=== PATIENT | female | born 1960 | race Caucasian/White ===

== ENCOUNTER 2016-08-13 18:35 | Observation (INO) | payer OTHER ==
--- NOTE | 2016-08-13 19:37 | PDOC ---
History of Present Illness - General History Source: Patient Exam Limitations: No Limitations - History of Present Illness Initial Comments: 08/13/16 19:37 The patient is a 55 year old female with history of hypertension, hyperlipidemia (not on medications), DM, thyroid disease obesity, OA, who presents to the ED complaining of approximately 2 hours of shortness of breath. She states she set off a gomez bomb in her house this morning. This afternoon she was cooking at approximately 5:30 PM when she became short of breath with associated nonproductive cough, lightheadedness, and sore throat. The patient also complains of several months of intermittent chest discomfort with numbness radiating down her left arm unilaterally. She also complains of right lower extremity swelling of the ankle for 2 days, no calf pain. States she felt a bug and scratched it prior to the onset of her right ankle swelling. No true chest pain. No fever or chills. No nausea, vomiting, or diarrhea. PCP: Dr. Lewis [employer] Rep[employer] Supervisor: None SH: Denies smoking or drinking FH: Sister of cardiac arrest in her 40s Sisters with Breast CA, father with "throat" cancer <Ericka Obando - Last Filed: 08/14/16 00:05> <Anay Marcum - Last Filed: 08/14/16 05:23> - General Chief Complaint: Shortness of Breath Stated Complaint: DIFFICULTY BREATHING Time Seen by Provider: 08/13/16 19:14 Past History <Ericka Obando - Last Filed: 08/14/16 00:05> - Past Medical History Diabetes: Yes Thyroid Disease: Yes - Psycho/Social/Smoking Cessation Hx Anxiety: No Suicidal Ideation: No Smoking History: Former smoker Have you smoked in the past 12 months: No Information on smoking cessation initiated: No Hx Alcohol Use: No Drug/Substance Use Hx: No Substance Use Type: None <Anay Marcum - Last Filed: 08/14/16 05:23> - Past Medical History Allergies/Adverse Reactions: Allergies Allergy/AdvReac Type Severity Reaction Status Date / Time Penicillins Allergy Verified 08/13/16 18:36 Home Medications: Ambulatory Orders Gabapentin 300 mg PO DAILY 08/13/16 Levothyroxine [Synthroid -] 300 mcg PO DAILY 08/13/16 Metformin HCl 1,000 mg PO BID 08/13/16 Naproxen Sodium [Aleve] 220 mg PO DAILY 08/13/16 Review of Systems - Review of Systems Able to Perform ROS?: Yes Comments:: 08/13/16 19:41 GENERAL/CONSTITUTIONAL: No fever or chills. No weakness. HEAD, EYES, EARS, NOSE AND THROAT: +sore throat. +nasal congestion. No change in vision. No ear pain or discharge. CARDIOVASCULAR: +lightheadedness. +Right lower edema. +Chest discomfort with LUE numbness x several months. No true chest pain. RESPIRATORY: +SOB. +Nonproductive cough. No hemoptysis. GASTROINTESTINAL: No nausea, vomiting, diarrhea or constipation. GENITOURINARY: No dysuria, frequency, or change in urination. MUSCULOSKELETAL: No joint or muscle swelling or pain. No neck or back pain. SKIN: No rash NEUROLOGIC: No headache, loss of consciousness. +LUE numbnessx several months. ENDOCRINE: No increased thirst. No abnormal weight change. HEMATOLOGIC/LYMPHATIC: No anemia, easy bleeding, or history of blood clots. ALLERGIC/IMMUNOLOGIC: No hives or skin allergy. <Ericka Obando - Last Filed: 08/14/16 00:05> *Physical Exam - Vital Signs Last Vital Signs Temp Pulse Resp BP Pulse Ox 98.0 F 80 18 114/71 96 08/13/16 18:51 08/13/16 18:51 08/13/16 18:51 08/13/16 18:51 08/13/16 18:51 - Physical Exam Comments: 08/13/16 20:02 GENERAL: Awake, alert, and fully oriented, in no acute distress HEAD: No signs of trauma EYES: PERRLA, EOMI, sclera anicteric, conjunctiva clear ENT: Auricles normal inspection, hearing grossly normal, nares patent, oropharynx clear without exudates. Moist mucosa NECK: Normal ROM, supple, no lymphadenopathy, JVD, or masses LUNGS: Breath sounds equal, clear to auscultation bilaterally. No wheezes, and no crackles HEART: Regular rate and rhythm, normal S1 and S2, no murmurs, rubs or gallops ABDOMEN: Soft, nontender, normoactive bowel sounds. No guarding, no rebound. No masses EXTREMITIES: +RLE edema of the ankle. No calf tenderness, negative Bessy's. Normal range of motion. No clubbing or cyanosis. No cords, erythema, or tenderness NEUROLOGICAL: Cranial nerves II through XII grossly intact. Normal speech, normal gait SKIN: Warm, Dry, normal turgor, no rashes or lesions noted. <Ericka Obando - Last Filed: 08/14/16 00:05> - Vital Signs Last Vital Signs Temp Pulse Resp BP Pulse Ox 98.0 F 80 18 114/71 96 08/13/16 18:51 08/13/16 18:51 08/13/16 18:51 08/13/16 18:51 08/13/16 18:51 <Anay Marcum - Last Filed: 08/14/16 05:23> Heart Score/ECG Review #1 08/13/16 21:13 EKG obtained 18:50. NSR at [address] segment changes in V2 and V3. Abnormal EKG #2 08/13/16 21:13 EKG obtained 21:02. Normal sinus rhythm [address] segment changes unchanged from previous. <Ericka Obando - Last Filed: 08/14/16 00:05> - History History: Slightly suspicious - Electrocardiogram EKG: Non specific repolarization disturbance - Age Age: 45-65 - Risk Factors Risk Factors Heart Score: Yes Hx Hypercholesterolemia, Yes Hx Diabetes, Yes Positive family hx of cardiac disease, Yes Hx Obesity Based on the list above the patient has:: >/=3 risk factors or Hx atherosclerotic disease - Troponin Troponin: </= normal limit (obs) - Score Heart Score - Total: 4 <Anay Marcum - Last Filed: 08/14/16 05:23> ED Treatment Course - LABORATORY CBC & Chemistry Diagram: 08/13/16 20:36 08/13/16 20:36 <Ericka Obando - Last Filed: 08/14/16 00:05> - LABORATORY CBC & Chemistry Diagram: 08/13/16 20:36 08/13/16 20:36 <Anay Marcum - Last Filed: 08/14/16 05:23> Medical Decision Making - Medical Decision Making 08/14/16 05:19 Pt comes with SOB and CP. SHe has high cholesterol and fam hx of CAD and she is morbidly obese. She states that for the last few weeks she has been experiencing left sided arm pain and chest pain. 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 SHe has wheezing, but she has no hx of asthma. She states that she used a gomez killer throughout her home today, which may be contributing to the SOB, however, she will be admitted for cardiology workup, as the angina like chest pain in the past several weeks followed by todays [facility] , and her EKG which demonstrates anterior ST T changes behoove us to follow her cardiac enzymes. Pt will be admitted to telemetry observation. <Anay Marcum - Last Filed: 08/14/16 05:23> *DC/Admit/Observation/Transfer - Attestations Scribe Attestion: 08/13/16 20:04 Documentation prepared by Ericka Obando, acting as medical transcription radiology for Anay Marcum MD. <Ericka Obando - Last Filed: 08/14/16 00:05> - Discharge Dispostion Admit: Yes <Anay Marcum - Last Filed: 08/14/16 05:23> Diagnosis at time of Disposition: Chest pain, Dyspnea
[2016-08-13 20:41] LABS: MCH 31.3 pg (25.7-33.7); MCHC 33.3 g/dl (32.0-36.0); MEAN CELL VOLUME 93.8 fl (80-96); MEAN PLT VOLUME 10.4 fl (7.5-11.1); PLATELET COUNT 166 K/MM3 (134-434); RDW 12.9 % (11.6-15.6); WHITE BLOOD COUNT 7.6 K/mm3 (4.0-10.0)
[2016-08-13 21:06] LABS: INR 1.03 (0.82-1.09); PROTHROMBIN TIME (PATIENT) 11.3 SEC (9.98-11.88)
[2016-08-13] MEDS ORDERED: ASPIRIN 81 MG CHEWABLE TABLETS PO ONE (21:12)
[2016-08-13] MEDS ORDERED: predniSONE 20 MG TABLET (UD) PO ONE (21:12)
[2016-08-13] MEDS ORDERED: ALBUTEROL SO4 2.5/IPRATROPIUM 0.5 INH SOL 3 ML VIAL.NEB. NEB ONE ×2 (21:12→21:16)
[2016-08-13 21:16] LABS: ALBUMIN 3.9 g/dl (3.4-5.0); ANION GAP 8 (8-16); BILIRUBIN,TOTAL 0.3 mg/dL (0.2-1.0); CALCIUM 9.9 mg/dL (8.5-10.1); CO2 30 mmol/L (21-32); GLUCOSE,RANDOM 290 mg/dL (74-106); SGOT/AST 70 U/L (15-37); SGPT/ALT 106 U/L (12-78); TOT PROT 7.7 g/dl (6.4-8.2)
[2016-08-13] MEDS ORDERED: predniSONE 20 MG TABLET (UD) ONE (21:16)
[2016-08-13] MEDS ORDERED: ASPIRIN 81 MG CHEWABLE TABLETS ONE (21:16)
[2016-08-13 21:18] LABS: ALK PHOS 70 U/L (45-117); TROPONIN I < 0.02 ng/ml (0.00-0.05)
[2016-08-13 21:20] LABS: METAMYELOCYTE 1 % (0-2); PLATELET ESTIMATE ADEQUATE (NORMAL)
--- NOTE | 2016-08-13 22:43 | PN ---
Teaching Attending Note Name of Resident: Veronica Goff ATTENDING PHYSICIAN STATEMENT I saw and evaluated the patient. I reviewed the resident's note and discussed the case with the resident. I agree with the resident's findings and plan as documented. SUBJECTIVE: 55 F with pmhc htn. hld, DM, thyriod disorder who presented with shortness of breath and chest pain. Chest pain is intermittent in nature and has been going on several weeks in duration. No chest pressure. Chest pain radiates down the left hand. States during the "gomez bomb" she has shortness of breath. Also notes immobility anf LLE swelling X 1 day in duration. OBJECTIVE: Physical: VS: Vital Signs Period Temp Pulse Resp BP Sys/Cooley Pulse Ox Last 24 Hr 97.8 F-98.0 F 80-82 18-20 113-114/71-93 96-99 02 % 89-90% upon our arrival to ED GEN: NAD, Able to speak full sentences, resting in bed HEENT: NCAT, PERRL CARD: RRR S1, S2 RESP: Bilateral mild expiratory wheeze ABD: BS X4, NTD to palpation EXT: R foot non-pitting edema, with calf tenderness, RLE mild edema > LLE CBCD WBC 7.6 K/mm3 (4.0-10.0) 08/13/16 20:36 RBC 4.81 M/mm3 (3.60-5.2) 08/13/16 20:36 Hgb 15.0 GM/dL (10.7-15.3) 08/13/16 20:36 Hct 45.1 % (32.4-45.2) 08/13/16 20:36 MCV 93.8 fl (80-96) 08/13/16 20:36 MCHC 33.3 g/dl (32.0-36.0) 08/13/16 20:36 RDW 12.9 % (11.6-15.6) 08/13/16 20:36 Plt Count 166 K/MM3 (134-434) 08/13/16 20:36 MPV 10.4 fl (7.5-11.1) 08/13/16 20:36 CMP Sodium 137 mmol/L (136-145) 08/13/16 20:36 Potassium 5.1 mmol/L (3.5-5.1) 08/13/16 20:36 Chloride 99 mmol/L (98-107) 08/13/16 20:36 Carbon Dioxide 30 mmol/L (21-32) 08/13/16 20:36 Anion Gap 8 (8-16) 08/13/16 20:36 BUN 19 mg/dL (7-18) H 08/13/16 20:36 Creatinine 1.0 mg/dL (0.55-1.02) 08/13/16 20:36 Creat Clearance w eGFR 57.78 (>60) 08/13/16 20:36 Random Glucose 290 mg/dL (74-106) H 08/13/16 20:36 Calcium 9.9 mg/dL (8.5-10.1) 08/13/16 20:36 Total Bilirubin 0.3 mg/dL (0.2-1.0) 08/13/16 20:36 AST 70 U/L (15-37) H 08/13/16 20:36 ALT 106 U/L (12-78) H 08/13/16 20:36 Alkaline Phosphatase 70 U/L (45-117) 08/13/16 20:36 Total Protein 7.7 g/dl (6.4-8.2) 08/13/16 20:36 Albumin 3.9 g/dl (3.4-5.0) 08/13/16 20:36 CARDIAC ENZYMES Creatine Kinase 105 IU/L (26-192) 08/13/16 20:36 Troponin I < 0.02 ng/ml (0.00-0.05) 08/13/16 20:36 ASSESSMENT AND PLAN: 55 f with htn, hld, dm, thyriod disorder who presents with shortness of breath and chest pain 1.) Shortness of Breath- Hypoxemia - ABG - WELLS SCORE 3 - CTA ro PE - Alb neb prn sob - Prednisone given in ED - 2L NC 2.) Chest pain- Atypical - HEart 3 - Trend Ekg/Trop - ASA - 02 2 L NC - Nitro/Morphine prn chest pain 3.) HTN - C/w Home meds 4.) HLD - Cont home meds 5.) DM - FS - RAISS 6.) RLE Edema - Stat Duplex 7.) Transaminitis - Hepatitis Panel - Trend, can be followed outpt. 7.) Dvt ppx - Eval for DVT w. Duplex Place in [facility]
--- NOTE | 2016-08-14 00:10 | HP ---
CHIEF COMPLAINT: Shortness of breath and chest pain PCP: Dr. Lewis HISTORY OF PRESENT ILLNESS: Patient is a 55 year old female with a PMHx of HTN, HLD, DMII, Hypothyroidism, Obesity, OA who presented for chest pain that initially started a couple of weeks ago when sitting at home in her usual state of health. She describes the chest pain as sharp, located in the left side radiating to the entire left arm occurring several times a day with no alleviating or exacerbating factors. She rates the pain a 10/10 at its worst. She denies taking any medication for the pain. Patient then reports the pain intensified this afternoon after spraying her house with "gomez spray" associated with shortness of breath and a non productive cough. Patient also reports right Lower extreme swelling and tenderness that started suddenly two days ago but denies any trauma or falls. Otherwise, patient denies fever, chills, nausea, vomiting, abdominal pain, palpitations, acute vision changes, headaches. Patient denies any recent travel. She does admit to having a sedentary lifestyle and rarely ambulates except to go to the bathroom or kitchen. ER course was notable for: (1) Prednisone and DuoNeb given (2) Troponin negative (3) Recent Travel: Denies PAST MEDICAL HISTORY: HTN, HLD, DMII, Hypothyroidism, Obestiy, OA PAST SURGICAL HISTORY: Hysterectomy Social History: Smoking: Denies Alcohol: Denies Drugs: Denies Family History: Sister- Breast Cancer and [place] in 40's Allergies: Penicillins Allergy (Verified 08/13/16 18:36) HOME MEDICATIONS: Home Medications Medication Instructions Recorded Gabapentin 300 mg PO DAILY 08/13/16 Levothyroxine [Synthroid -] 300 mcg PO DAILY 08/13/16 Metformin HCl 1,000 mg PO BID 08/13/16 Naproxen Sodium [Aleve] 220 mg PO DAILY 08/13/16 REVIEW OF SYSTEMS CONSTITUTIONAL: Absent: fever, chills, diaphoresis, generalized weakness, malaise, loss of appetite, weight change HEENT: Absent: rhinorrhea, nasal congestion, throat pain, throat swelling, difficulty swallowing, mouth swelling, ear pain, eye pain, visual changes CARDIOVASCULAR: chest pain, lightheadedness, peripheral edema Absent: syncope, palpitations, irregular heart rate RESPIRATORY: shortness of breath Absent: cough, dyspnea with exertion, orthopnea, wheezing, stridor, hemoptysis GASTROINTESTINAL: Absent: abdominal pain, abdominal distension, nausea, vomiting, diarrhea, constipation, melena, hematochezia GENITOURINARY: Absent: dysuria, frequency, urgency, hesitancy, hematuria, flank pain, genital pain MUSCULOSKELETAL: Absent: myalgia, arthralgia, joint swelling, back pain, neck pain SKIN: Absent: rash, itching, pallor HEMATOLOGIC/IMMUNOLOGIC: Absent: easy bleeding, easy bruising, lymphadenopathy, frequent infections ENDOCRINE: Absent: unexplained weight gain, unexplained weight loss, heat intolerance, cold intolerance NEUROLOGIC: Absent: headache, focal weakness or paresthesias, dizziness, unsteady gait, seizure, mental status changes, bladder or bowel incontinence PSYCHIATRIC: Absent: anxiety, depression, suicidal or homicidal ideation, hallucinations. PHYSICAL EXAMINATION Vital Signs - 24 hr 08/13/16 08/13/16 18:37 18:51 Temperature 97.8 F 98.0 F Pulse Rate 82 Pulse Rate [ 80 Left Apical] Respiratory 20 18 Rate Blood Pressure 113/93 Blood Pressure 114/71 [Right Arm] O2 Sat by Pulse 99 96 Oximetry (%) GENERAL: Awake, alert, and fully oriented, in no acute distress. EYES: Sclera anicteric, conjunctiva clear. EARS, NOSE, THROAT: Moist mucous membranes. NECK: Normal range of motion LUNGS: Mild expiratory wheezing throughout lung bases with no crackles. No accessory muscle use. HEART: Regular rate and rhythm, normal S1 and S2 without murmur, rub or gallop. ABDOMEN: Soft, nontender, not distended, normoactive bowel sounds, no guarding, no rebound, no masses. No hepatomegaly or splenomegaly. UPPER EXTREMITIES: No peripheral edema. LOWER EXTREMITIES: Right lower extremity swelling and nonpitting edema with calf tenderness. NEUROLOGICAL: Normal speech. No facial droop Laboratory Results - last 24 hr 08/13/16 08/13/16 08/13/16 20:36 20:36 20:36 WBC 7.6 RBC 4.81 Hgb 15.0 Hct 45.1 MCV 93.8 MCHC 33.3 RDW 12.9 Plt Count 166 MPV 10.4 Neutrophils % 57.0 Lymphocytes % 33.0 Monocytes % 5.0 Eosinophils % 4.0 Metamyelocytes 1 Differential Comment Manual diff done Platelet Estimate Adequate INR 1.03 Sodium 137 Potassium 5.1 Chloride 99 Carbon Dioxide 30 Anion Gap 8 BUN 19 H Creatinine 1.0 Creat Clearance w eGFR 57.78 Random Glucose 290 H Calcium 9.9 Total Bilirubin 0.3 AST 70 H ALT 106 H Alkaline Phosphatase 70 Creatine Kinase 105 Troponin I < 0.02 Total Protein 7.7 Albumin 3.9 IMAGES: Chest X-Ray (08/13/16): Chest/Thorax CTA (08/14/16): Arterial Duplex (08/14/16): EKG (08/13/16): Normal sinus rhythm 75 bpm with non-specific ST changes in V2 and V3 ASSESSMENT/PLAN: Patient is a 55 year old female with a PMHx of HTN, HLD, DMII, Hypothyroidism, Obesity, OA who presents for chest pain, shortness of breath, and RLE swelling/ Edema. Patient found to be hypoxic and admitted to telemetry for further monitoring and management. Acute Hypoxic Respiratory Failure -Secondary to PE vs. Asthma -WELLS Score: 3 -DuoNeb x2 given in ED and Prednsone 40mg -Albuterol nebulizer PRN ordered -Chest CTA to rule out PE ordered - NC -Continue to monitor 02 Saturation Atypical Chest Pain -HEART Score: 3 -Troponin negative x2, third one ordered in the morning -ASA Loading dose 162mg given in ED. Continue ASA 81mg daily -TSH ordered -Repeat EKG in the morning Right Lower Extremity Edema -Duplex ordered to rule out VTE Transaminitis -Hepatitis panel ordered -Will continue to trend HTN-Controlled -On no Medication -Call Pharmacy to confirm -Continue to monitor BP HLD-Controlled -Lipid Panel ordered -On no medications. Call pharmacy to confirm DMII-Controlled -ISS -BGM -A1C ordered F/E/N -On no fluids -Electrolytes wnl -Sodium/Diabetic controlled diet Prophylaxis -High risk. Heparin 5000 units SQ Q8H -No GI prophylaxis indicated Disposition -Full code -CTA ordered Visit type - Emergency Visit Emergency Visit: Yes ED Registration Date: 08/13/16 Care time: The patient presented to the Emergency Department on the above date and was hospitalized for further evaluation of their emergent condition. - New Patient This patient is new to me today: Yes Date on this admission: 08/14/16 - Critical Care Critical Care patient: No
[2016-08-14] MEDS ORDERED: ALBUTEROL SO4 2.5/IPRATROPIUM 0.5 INH SOL 3 ML VIAL.NEB. NEB ONE (00:23)
[2016-08-14] MEDS ORDERED: ALBUTEROL SO4 0.083% IH SOL 2.5 MG/3 ML VIAL.NEB. NEB PRN (00:23)
[2016-08-14 05:43] LABS: THYROID STIMULATING HORMONE 4.57 uIU/ml (0.358-3.74)
[2016-08-14] MEDS: INSULIN SLIDING SCALE (NOVOLOG) 1 VIAL SQ SCH ×4 (06:38→21:19)
[2016-08-14] MEDS: HEPARIN NA (PORCINE) 5,000 UNITS/ML 1ML VIAL SQ SCH ×3 (06:38→21:11)
[2016-08-14] MEDS: LEVOTHYROXINE NA 150 MCG TABLET PO SCH (06:38)
[2016-08-14 06:45] LABS: ARTERIAL BLD GAS O2 SATURATION 94.9 % (90-98.9); ARTERIAL BLOOD GAS BASE EXCESS -2.1 meq/l (-2-2); ARTERIAL BLOOD GAS HCO3 22.3 meq/L (22-26); ARTERIAL BLOOD GAS pH 7.37 (7.35-7.45)
[2016-08-14 06:46] LABS: ALLENS TEST POSITIVE; ART PUNCT SITE RIGHT RADIAL; LPM/O2% 21%; PT. ON O2? NO; TYPE OF O2 ROOM AIR
[2016-08-14 06:47] LABS: ARTERIAL BLOOD GAS PO2 77.4 mmHg (80-100)
[2016-08-14 07:33] VITALS: BMI 42.3
[2016-08-14 08:30] LABS: ANION GAP 14 (8-16); CALCIUM 9.4 mg/dL (8.5-10.1); CO2 26 mmol/L (21-32); CREATININE 1.1 mg/dL (0.55-1.02)
[2016-08-14 08:31] LABS: INR 1.03 (0.82-1.09); PROTHROMBIN TIME (PATIENT) 11.3 SEC (9.98-11.88)
[2016-08-14] MEDS: ASPIRIN COATED 81 MG TABLET.EC PO SCH (09:15)
[2016-08-14] MEDS: GABAPENTIN 300 MG CAPSULE (FP) PO SCH (09:15)
[2016-08-14 09:18] LABS: GLUCOSE,RANDOM 502 mg/dL (74-106)
--- NOTE | 2016-08-14 10:30 | CON.CARD ---
Consult Consult Specialty:: Cardiology Referred by:: Hospitalist Medicine Reason for Consultation:: Chest pain, dyspnea on exertion - History of Present Illness Chief Complaint: Chest pain, dyspnea on exertion History of Present Illness: 55 F with pmhc htn. hld, DM, thyriod disorder who presented with shortness of breath, cough, wheeze and inspiratory chest tightness after entering into room that had been treated with gomez bomb aerosol spray, sxs improving with bronchodilators. She reports chronic dyspnea on exertion without near or true syncope, palpitations, orthopnea, PNE, reports asymmetric RLE swelling, ruled out for DVT. - History Source History Provided By: Patient Limitations to Obtaining History: No Limitations - Past Medical History Endocrine: Yes: Diabetes Mellitus, Hypothyroidism - Alcohol/Substance Use Hx Alcohol Use: No - Smoking History Smoking history: Former smoker Have you smoked in the past 12 months: No Home Medications - Allergies Allergies/Adverse Reactions: Allergies Allergy/AdvReac Type Severity Reaction Status Date / Time Penicillins Allergy Verified 08/13/16 18:36 - Home Medications Home Medications: Ambulatory Orders Gabapentin 300 mg PO DAILY 08/13/16 Levothyroxine [Synthroid -] 300 mcg PO DAILY 08/13/16 Metformin HCl 1,000 mg PO BID 08/13/16 Naproxen Sodium [Aleve] 220 mg PO DAILY 08/13/16 Review of Systems - Review of Systems Respiratory: reports: Cough, Exercise Intolerance, SOB on Exertion, Wheezing Vital Signs: Vital Signs Temperature 97.8 F 08/14/16 07:00 Pulse Rate 76 08/14/16 07:00 Respiratory Rate 20 08/14/16 07:00 Blood Pressure 137/67 08/14/16 07:00 O2 Sat by Pulse Oximetry (%) 97 08/14/16 07:00 Constitutional: Yes: No Distress, Calm Neck: Yes: Supple Respiratory: Yes: Regular, Diminished, On Nasal O2 Gastrointestinal: Yes: Normal Bowel Sounds, Soft, Abdomen, Obese Cardiovascular: Yes: Regular Rate and Rhythm JVD: No Carotid Bruit: No Heart Sounds: Yes: S1, S2 Murmur: Yes: Systolic Murmur, Grade 1 Edema: Yes Edema: RLE: 1+ - Other Data Labs, Other Data: CBC, BMP 08/14/16 06:16 INR, PTT INR 1.03 (0.82-1.09) 08/14/16 06:16 Troponin, BNP 08/14/16 08/14/16 08/14/16 04:30 04:30 06:16 Troponin I < 0.02 B-Natriuretic Peptide 63.84 Cancelled Troponin, BNP 08/14/16 08/14/16 08/14/16 04:30 04:30 06:16 Troponin I < 0.02 B-Natriuretic Peptide 63.84 Cancelled NSR @ [address]-T changes Imaging - Results Chest X-ray: Report Reviewed (NAD) Cat Scan: Report Reviewed (Chest CTA: Neg PE, consolidation, effusions) Problem List - Problems (1) Chest pain Code(s): R07.9 - CHEST PAIN, UNSPECIFIED Qualifiers: Chest pain type: chest pain on breathing Qualified Code(s): R07.1 - Chest pain on breathing (2) Dyspnea Code(s): R06.00 - DYSPNEA, UNSPECIFIED Qualifiers: Dyspnea type: dyspnea on exertion Qualified Code(s): R06.09 - Other forms of dyspnea (3) Hyperlipidemia due to type 2 diabetes mellitus Code(s): E11.69 - TYPE 2 DIABETES MELLITUS WITH OTHER SPECIFIED COMPLICATION E78.5 - HYPERLIPIDEMIA, UNSPECIFIED (4) Diabetes mellitus Code(s): E11.9 - TYPE 2 DIABETES MELLITUS WITHOUT COMPLICATIONS Qualifiers: Diabetes mellitus type: type 2 Diabetes mellitus intermodal customer service insulin use : without fpc use (5) Hypothyroidism Code(s): E03.9 - HYPOTHYROIDISM, UNSPECIFIED Qualifiers: Hypothyroidism type: unspecified Qualified Code(s): E03.9 - Hypothyroidism, unspecified (6) Acute bronchitis Code(s): J20.9 - ACUTE BRONCHITIS, UNSPECIFIED (7) Morbid obesity Code(s): E66.01 - MORBID (SEVERE) OBESITY DUE TO EXCESS CALORIES Qualifiers: Obesity type: unspecified obesity type Qualified Code(s): E66.01 - Morbid (severe) obesity due to excess calories Assessment/Plan 1. Dyspnea and chest tightness post environmental exposure c/w acute bronchitis 2. Chronic dyspnea on exertion, exercise intolerance suspect diabetic cardiomyopathy 3. Hypothyroidism 4. Poorly controlled Type 2 DM 5. Rule out OSAS 6. Hyperlipidema 7. Abnl LFTs suspect CONTRERAS P:1. Ruled out for MS, BD, O2 as needed, trend LFTs 2. Start Crestor 20 qd, may eventually require addition of Zetia per LDL, start losartan 25 qd for renovascular protection, optimize hypoglycemic regimen, consider addition of Jardiance 3. Echocardiogram to assess ventricular and valve fxn 4. Stress testing to r/o CAD, sleep study r/o OSAS may be performed as outpatient 5. Thank you for consultative opportunity
--- NOTE | 2016-08-14 10:36 | EKG ---
Test Reason : Blood Pressure : / mmHG Vent. Rate : 075 BPM Atrial Rate : 075 BPM P-R Int : 156 ms QRS Dur : 088 ms QT Int : 392 ms P-R-T Axes : 034 051 054 degrees QTc Int : 437 ms NORMAL SINUS RHYTHM NONSPECIFIC ST AND T WAVE ABNORMALITY ABNORMAL ECG WHEN COMPARED WITH ECG OF 13-AUG-2016 18:50, NO SIGNIFICANT CHANGE WAS FOUND Confirmed by MISHEL MCDOWELL MD ([id number]) on 08/14/2016 10:36:02 AM Referred By: Confirmed By:MISHEL MCDOWELL MD
--- NOTE | 2016-08-14 10:37 | EKG ---
Test Reason : Blood Pressure : / mmHG Vent. Rate : 081 BPM Atrial Rate : 081 BPM P-R Int : 158 ms QRS Dur : 090 ms QT Int : 392 ms P-R-T Axes : 038 045 068 degrees QTc Int : 455 ms NORMAL SINUS RHYTHM NONSPECIFIC ST AND T WAVE ABNORMALITY ABNORMAL ECG NO PREVIOUS ECGS AVAILABLE Confirmed by JULY RIGGS, MISHEL ([id number]) on 08/14/2016 10:36:40 AM Referred By: Confirmed By:MISHEL MCDOWELL MD
[2016-08-14] MEDS: LOSARTAN POTASSIUM 25 MG TABLET PO SCH (11:25)
[2016-08-14 11:38] LABS: TROPONIN I < 0.02 ng/ml (0.00-0.05)
--- NOTE | 2016-08-14 17:19 | PN ---
Progress Note (short form) - Note Progress Note: Subjective: The patient was seen seen and examined at the bedside, she reports feeling better. Hgb A1c 11.3 Started on Levemir for uncontrolled glucose Extremely non-compliant with diet: gingerale and cookies at bedside Current Medications Generic Name Dose Route Start Last Admin Trade Name Freq PRN Reason Stop Dose Admin Albuterol Sulfate 1 amp 08/14/16 00:23 Ventolin 0.083% Nebulizer Soln - NEB Q6H PRN SHORT OF BREATH/WHEEZING Aspirin 81 mg 08/14/16 10:00 08/14/16 09:15 Ecotrin - PO 81 mg DAILY GREG Administration Gabapentin 300 mg 08/14/16 10:00 08/14/16 09:15 Neurontin - PO 300 mg DAILY GREG Administration Heparin Sodium (Porcine) 5,000 unit 08/14/16 06:00 08/14/16 13:42 Heparin - SQ 5,000 unit TID GREG Administration Insulin Aspart 1 vial 08/14/16 07:00 08/14/16 17:09 Novolog Vial Sliding Scale - SQ 2 units ACHS GREG Administration Protocol Insulin Detemir 7 units 08/14/16 22:00 Levemir Vial SQ HS GREG Levothyroxine Sodium 300 mcg 08/14/16 07:00 08/14/16 06:38 Synthroid - PO 300 mcg DAILY@0700 GREG Administration Losartan Potassium 25 mg 08/14/16 10:45 08/14/16 11:25 Cozaar - PO 25 mg DAILY GREG Administration Rosuvastatin Calcium 20 mg 08/14/16 22:00 Crestor - PO HS GREG Objective: Vital Signs Period Temp Pulse Resp BP Sys/Cooley Pulse Ox Last 24 Hr 97.8 F-98.3 F 71-85 16-20 113-147/66-93 96-100 Physical Exam: General: Morbidly obese, NAD HEENT: poor dentition Lungs: CTA bilaterally Heart: RRR, S1S2 Abd: Soft, non-tender, non-distended. Normoactive bowel sounds Ext: Warm, well-perfused. 2+ DP/PT bilaterally Neuro: CN 2-12 intact CBCD WBC 7.6 K/mm3 (4.0-10.0) 08/13/16 20:36 RBC 4.81 M/mm3 (3.60-5.2) 08/13/16 20:36 Hgb 15.0 GM/dL (10.7-15.3) 08/13/16 20:36 Hct 45.1 % (32.4-45.2) 08/13/16 20:36 MCV 93.8 fl (80-96) 08/13/16 20:36 MCHC 33.3 g/dl (32.0-36.0) 08/13/16 20:36 RDW 12.9 % (11.6-15.6) 08/13/16 20:36 Plt Count 166 K/MM3 (134-434) 08/13/16 20:36 MPV 10.4 fl (7.5-11.1) 08/13/16 20:36 CMP Sodium 134 mmol/L (136-145) L 08/14/16 06:16 Potassium 4.7 mmol/L (3.5-5.1) 08/14/16 06:16 Chloride 94 mmol/L (98-107) L 08/14/16 06:16 Carbon Dioxide 26 mmol/L (21-32) 08/14/16 06:16 Anion Gap 14 (8-16) 08/14/16 06:16 BUN 18 mg/dL (7-18) 08/14/16 06:16 Creatinine 1.1 mg/dL (0.55-1.02) H 08/14/16 06:16 Creat Clearance w eGFR 57.78 (>60) 08/13/16 20:36 Random Glucose 502 mg/dL (74-106) H* D 08/14/16 06:16 Calcium 9.4 mg/dL (8.5-10.1) 08/14/16 06:16 Total Bilirubin 0.3 mg/dL (0.2-1.0) 08/13/16 20:36 AST 70 U/L (15-37) H 08/13/16 20:36 ALT 106 U/L (12-78) H 08/13/16 20:36 Alkaline Phosphatase 70 U/L (45-117) 08/13/16 20:36 Total Protein 7.7 g/dl (6.4-8.2) 08/13/16 20:36 Albumin 3.9 g/dl (3.4-5.0) 08/13/16 20:36 CARDIAC ENZYMES Creatine Kinase 90 IU/L (26-192) 08/14/16 10:35 Troponin I < 0.02 ng/ml (0.00-0.05) 08/14/16 10:35 Assessment: This is a 55 year old female with
[2016-08-14] MEDS: ACETAMINOPHEN 325 MG TABLET (FP) PO PRN (21:11)
[2016-08-14] MEDS: ROSUVASTATIN CA 20 MG TABLET (FP) PO SCH (21:11)
[2016-08-14] MEDS: INSULIN DETEMIR 100 UNITS/ML MDV SQ SCH (21:18)
[2016-08-15] MEDS: INSULIN SLIDING SCALE (NOVOLOG) 1 VIAL SQ SCH ×4 (06:31→21:58)
[2016-08-15] MEDS: HEPARIN NA (PORCINE) 5,000 UNITS/ML 1ML VIAL SQ SCH ×3 (06:31→21:54)
[2016-08-15] MEDS: LEVOTHYROXINE NA 150 MCG TABLET PO SCH (06:31)
[2016-08-15 08:28] LABS: ALBUMIN 3.4 g/dl (3.4-5.0); ALK PHOS 61 U/L (45-117); ANION GAP 6 (8-16); BILIRUBIN,TOTAL 0.4 mg/dL (0.2-1.0); CALCIUM 9.2 mg/dL (8.5-10.1); CO2 31 mmol/L (21-32); CREATININE 0.8 mg/dL (0.55-1.02); GLUCOSE,RANDOM 241 mg/dL (74-106); SGOT/AST 98 U/L (15-37); SGPT/ALT 98 U/L (12-78); TOT PROT 6.8 g/dl (6.4-8.2)
--- NOTE | 2016-08-15 09:00 | DS ---
Physical Examination Vital Signs: Vital Signs Temperature 97.8 F 08/15/16 06:00 Pulse Rate 70 08/15/16 06:00 Respiratory Rate 20 08/15/16 08:53 Blood Pressure 132/74 08/15/16 06:00 O2 Sat by Pulse Oximetry (%) 97 08/15/16 08:53 Labs: CBC, BMP 08/15/16 05:48 Discharge Summary Reason For Visit: CHEST PAIN DYSPNEA Current Active Problems Acute bronchitis (Acute) Chest pain (Acute) Diabetes mellitus (Acute) Dyspnea (Acute) Hyperlipidemia due to type 2 diabetes mellitus (Acute) Hypothyroidism (Acute) Morbid obesity (Acute) Condition: Improved - Instructions Diet, Activity, Other Instructions: Please return to the ED with new, persistent, or worsening symptoms. Please follow-up with your providers as indicated. You MUST check your blood sugar 4 times a day: 30-45 minutes before each meal and at bedtime. You will be given a sliding scale for Novolog below. Based on the glucometer reading of your sugar, you will need to administer an amount of Novolog insulin about 30 minutes before each meal. Novolog Sliding Scale: - Blood sugar 100-150: no insulin - Blood sugar 151-200: 2 units - Blood sugar 201-250: 4 units - Blood sugar 251-300: 6 units - Blood sugar 301-350: 8 units - Blood sugar 351-400: 10 units - Blood sugar greater than 400, administer 12 units and call your doctor Continue Levemir 8 units sq before bedtime (10pm) You are being started on Crestor. Please follow-up with your primary care provider to have your cholesterol and triglycerides/lipids rechecked in about 3 weeks. Referrals: Elmer Lutz MD [Staff Physician] - (Please follow-up with your pcp within 1 week to schedule an appointment for repeat TSH (thyroid stimulating hormone) testing) Rom Dukes MD [Staff Physician] - (Please follow-up with pulmonary to schedule an outpatient workup for sleep apnea) Kota Benedict MD [Staff Physician] - (Please follow-up with Dr. Benedict within 2- 3 days for outpatient stress test and further cardiac workup) Yue Castillo MD [Staff Physician] - (Please follow-up with endocrine within 1 week for further management of your diabetes and insulin) Disposition: HOME - Home Medications Comprehensive Discharge Medication List: Ambulatory Orders Gabapentin 300 mg PO DAILY 08/13/16 Levothyroxine [Synthroid -] 300 mcg PO DAILY 08/13/16 Alcohol Antiseptic Pads [Easy Touch Alcohol Prep Pads] 1 each TP ACHS #1 med..pad 08/15/16 Aspirin Coated [Ecotrin -] 81 mg PO DAILY #30 tab 08/15/16 Blood-Glucose Meter, Drum-Type [Accu-Chek] 1 each MC ACHS #1 kit 08/15/16 Insulin (Levemir) [Levemir Vial] 8 units SQ HS #1 ml 08/15/16 Insulin Aspart [Novolog Flexpen] See Protocol SQ ACHS #1 insuln.pen 08/15/16 Lancets [Blood Lancets] 1 each ACHS #120 each 08/15/16 Losartan Potassium [Cozaar -] 25 mg PO DAILY #30 tablet 08/15/16 Miscellaneous Medical Supply [Glucometer Device] 1 each TD ASDIR #1 kit Miscellaneous Medical Supply [Glucometer Test Strips #100] 1 each TD ASDIR #1 box 08/15/16 Pen Needle, Diabetic [Insulin Pen Needle] 1 each ACHS #120 dis.needle Rosuvastatin [Crestor -] 20 mg PO HS #30 tablet 08/15/16
[2016-08-15] MEDS: GABAPENTIN 300 MG CAPSULE (FP) PO SCH (09:16)
[2016-08-15] MEDS: LOSARTAN POTASSIUM 25 MG TABLET PO SCH (09:16)
[2016-08-15] MEDS: ASPIRIN COATED 81 MG TABLET.EC PO SCH (09:16)
--- NOTE | 2016-08-15 10:19 | PN ---
Progress Note, Physician History of Present Illness: Shortness of breath, cough, wheeze and inspiratory chest tightness resolved after bronchodilator therapy. - Current Medication List Current Medications: Active Medications Acetaminophen (Tylenol -) 650 mg PO Q6H PRN PRN Reason: FEVER OR PAIN Last Admin: 08/14/16 21:11 Dose: 650 mg Albuterol Sulfate (Ventolin 0.083% Nebulizer Soln -) 1 amp NEB Q6H PRN PRN Reason: SHORT OF BREATH/WHEEZING Aspirin (Ecotrin -) 81 mg PO DAILY [facility] Last Admin: 08/15/16 09:16 Dose: 81 mg Gabapentin (Neurontin -) 300 mg PO DAILY [facility] Last Admin: 08/15/16 09:16 Dose: 300 mg Heparin Sodium (Porcine) (Heparin -) 5,000 unit SQ TID [facility] Last Admin: 08/15/16 06:31 Dose: 5,000 unit Insulin Aspart (Novolog Vial Sliding Scale -) 1 vial SQ ACHS [facility] PRN Reason: Protocol Last Admin: 08/15/16 06:31 Dose: 6 units Insulin Detemir (Levemir Vial) 7 units SQ [facility] Last Admin: 08/14/16 21:18 Dose: 7 units Levothyroxine Sodium (Synthroid -) 300 mcg PO DAILY@0700 [facility] Last Admin: 08/15/16 06:31 Dose: 300 mcg Losartan Potassium (Cozaar -) 25 mg PO DAILY [facility] Last Admin: 08/15/16 09:16 Dose: 25 mg Rosuvastatin Calcium (Crestor -) 20 mg PO HS [facility] Last Admin: 08/14/16 21:11 Dose: 20 mg - Objective Vital Signs: Vital Signs Temperature 98.2 F 08/15/16 10:00 Pulse Rate 65 08/15/16 10:00 Respiratory Rate 18 08/15/16 10:00 Blood Pressure 114/65 08/15/16 10:00 O2 Sat by Pulse Oximetry (%) 97 08/15/16 08:53 Constitutional: Yes: No Distress, Calm Neck: Yes: Supple Cardiovascular: Yes: Regular Rate and Rhythm Respiratory: Yes: Regular, Diminished Gastrointestinal: Yes: Normal Bowel Sounds, Soft, Abdomen, Obese Edema: No Labs: CBC, BMP 08/15/16 05:48 INR, PTT INR 1.03 (0.82-1.09) 08/14/16 06:16 Problem List - Problems (1) Chest pain Code(s): R07.9 - CHEST PAIN, UNSPECIFIED Qualifiers: Chest pain type: chest pain on breathing Qualified Code(s): R07.1 - Chest pain on breathing (2) Dyspnea Code(s): R06.00 - DYSPNEA, UNSPECIFIED Qualifiers: Dyspnea type: dyspnea on exertion Qualified Code(s): R06.09 - Other forms of dyspnea (3) Hyperlipidemia due to type 2 diabetes mellitus Code(s): E11.69 - TYPE 2 DIABETES MELLITUS WITH OTHER SPECIFIED COMPLICATION E78.5 - HYPERLIPIDEMIA, UNSPECIFIED (4) Diabetes mellitus Code(s): E11.9 - TYPE 2 DIABETES MELLITUS WITHOUT COMPLICATIONS Qualifiers: Diabetes mellitus type: type 2 Diabetes mellitus intermediate teacher insulin use : without half-way use (5) Hypothyroidism Code(s): E03.9 - HYPOTHYROIDISM, UNSPECIFIED Qualifiers: Hypothyroidism type: unspecified Qualified Code(s): E03.9 - Hypothyroidism, unspecified (6) Acute bronchitis Code(s): J20.9 - ACUTE BRONCHITIS, UNSPECIFIED (7) Morbid obesity Code(s): E66.01 - MORBID (SEVERE) OBESITY DUE TO EXCESS CALORIES Qualifiers: Obesity type: unspecified obesity type Qualified Code(s): E66.01 - Morbid (severe) obesity due to excess calories Assessment/Plan 08/14/2016 Echo: Normal biventricular size and fxn, tr MR, TR 1. Dyspnea and chest tightness post environmental exposure c/w acute bronchitis resolving 2. Chronic dyspnea on exertion, exercise intolerance suspect diabetic cardiomyopathy 3. Hypothyroidism 4. Poorly controlled Type 2 DM 5. Rule out OSAS 6. Hyperlipidema 7. Abnl LFTs suspect CONTRERAS P:1. Ruled out for [place], BD, O2 as needed, trend LFTs 2. Continue Crestor 20 qd, may eventually require addition of Zetia per LDL, continue losartan 25 qd for renovascular protection, optimize hypoglycemic regimen, consider addition of Jardiance 3. Stress testing to r/o CAD, sleep study r/o OSAS may be performed as outpatient 4. D/c planning
--- NOTE | 2016-08-15 15:33 | PN ---
Progress Note (short form) - Note Progress Note: Subjective: The patient was seen seen and examined at the bedside, she reports feeling better. Hgb A1c 11.3 Started on Levemir for uncontrolled glucose Extremely non-compliant with diet She is refusing to inject herself Current Medications Generic Name Dose Route Start Last Admin Trade Name Freq PRN Reason Stop Dose Admin Acetaminophen 650 mg 08/14/16 20:56 08/14/16 21:11 Tylenol - PO 650 mg Q6H PRN Administration FEVER OR PAIN Albuterol Sulfate 1 amp 08/14/16 00:23 Ventolin 0.083% Nebulizer Soln - NEB Q6H PRN SHORT OF BREATH/WHEEZING Aspirin 81 mg 08/14/16 10:00 08/15/16 09:16 Ecotrin - PO 81 mg DAILY GREG Administration Gabapentin 300 mg 08/14/16 10:00 08/15/16 09:16 Neurontin - PO 300 mg DAILY GREG Administration Heparin Sodium (Porcine) 5,000 unit 08/14/16 06:00 08/15/16 13:23 Heparin - SQ 5,000 unit TID GREG Administration Insulin Aspart 1 vial 08/14/16 07:00 08/15/16 12:17 Novolog Vial Sliding Scale - SQ 4 units ACHS GREG Administration Protocol Insulin Detemir 7 units 08/14/16 22:00 08/14/16 21:18 Levemir Vial SQ 7 units HS GREG Administration Levothyroxine Sodium 300 mcg 08/14/16 07:00 08/15/16 06:31 Synthroid - PO 300 mcg DAILY@0700 GREG Administration Losartan Potassium 25 mg 08/14/16 10:45 08/15/16 09:16 Cozaar - PO 25 mg DAILY GREG Administration Rosuvastatin Calcium 20 mg 08/14/16 22:00 08/14/16 21:11 Crestor - PO 20 mg HS GREG Administration Objective: Vital Signs Period Temp Pulse Resp BP Sys/Cooley Pulse Ox Last 24 Hr 97.0 F-98.4 F 65-82 18-20 110-146/65-78 96-97 Physical Exam: General: Morbidly obese, NAD HEENT: poor dentition Lungs: CTA bilaterally Heart: RRR, S1S2 Abd: Soft, non-tender, non-distended. Normoactive bowel sounds Ext: Warm, well-perfused. 2+ DP/PT bilaterally Neuro: CN 2-12 intact CBCD WBC 7.6 K/mm3 (4.0-10.0) 08/13/16 20:36 RBC 4.81 M/mm3 (3.60-5.2) 08/13/16 20:36 Hgb 15.0 GM/dL (10.7-15.3) 08/13/16 20:36 Hct 45.1 % (32.4-45.2) 08/13/16 20:36 MCV 93.8 fl (80-96) 08/13/16 20:36 MCHC 33.3 g/dl (32.0-36.0) 08/13/16 20:36 RDW 12.9 % (11.6-15.6) 08/13/16 20:36 Plt Count 166 K/MM3 (134-434) 08/13/16 20:36 MPV 10.4 fl (7.5-11.1) 08/13/16 20:36 CMP Sodium 139 mmol/L (136-145) 08/15/16 05:48 Potassium 4.8 mmol/L (3.5-5.1) 08/15/16 05:48 Chloride 102 mmol/L (98-107) 08/15/16 05:48 Carbon Dioxide 31 mmol/L (21-32) 08/15/16 05:48 Anion Gap 6 (8-16) L 08/15/16 05:48 BUN 19 mg/dL (7-18) H 08/15/16 05:48 Creatinine 0.8 mg/dL (0.55-1.02) D 08/15/16 05:48 Creat Clearance w eGFR > 60 (>60) 08/15/16 05:48 Random Glucose 241 mg/dL (74-106) H D 08/15/16 05:48 Calcium 9.2 mg/dL (8.5-10.1) 08/15/16 05:48 Total Bilirubin 0.4 mg/dL (0.2-1.0) D 08/15/16 05:48 AST 98 U/L (15-37) H D 08/15/16 05:48 ALT 98 U/L (12-78) H 08/15/16 05:48 Alkaline Phosphatase 61 U/L (45-117) 08/15/16 05:48 Total Protein 6.8 g/dl (6.4-8.2) 08/15/16 05:48 Albumin 3.4 g/dl (3.4-5.0) 08/15/16 05:48 CARDIAC ENZYMES Creatine Kinase 90 IU/L (26-192) 08/14/16 10:35 Troponin I < 0.02 ng/ml (0.00-0.05) 08/14/16 10:35 Assessment: This is a 55 year old female with a PMHx of HTN, HLD, DMII, Hypothyroidism, Obesity, OA who presented for chest pain that initially started a couple of weeks ago when sitting at home in her usual state of health. Plan: 1) Pulmonary: Shortness of breath - Resolved - CTA negative for PE - RLE doppler negative for DVT - Albuterol neb prn - Outpatient sleep apnea study 2) Cardiology: Chest pain - Resolved - Started on Losartan - Continue ASA - Crestor for elevated hyperlipidemia - ECHO reviewed - Outpatient stress test - Appreciate cardiology consult 3) Endocrine: DM - Uncontrolled diabetes on Metformin at home - Started on Levemir here with better control of blood sugars - The patient is refusing to inject insulin. Cannot restart Metformin as the patient received contrast <48h ago - F/u endocrine consult for further recommendations 4) F/E/N: - Sodium controlled, diabetic diet - Monitor electrolytes 5) Prophylaxis: - Heparin 5,000u sq tid - OOB ambulating 6) Dispo: - Once condition improves CODE STATUS: FULL CODE Visit type - Emergency Visit Emergency Visit: Yes ED Registration Date: 08/13/16 Care time: The patient presented to the Emergency Department on the above date and was hospitalized for further evaluation of their emergent condition. - New Patient This patient is new to me today: No - Critical Care Critical Care patient: No
[2016-08-15] MEDS: ROSUVASTATIN CA 20 MG TABLET (FP) PO SCH (21:54)
[2016-08-15] MEDS: INSULIN DETEMIR 100 UNITS/ML MDV SQ SCH (22:01)
[2016-08-16] MEDS: ACETAMINOPHEN 325 MG TABLET (FP) PO PRN (01:18)
[2016-08-16] MEDS: HEPARIN NA (PORCINE) 5,000 UNITS/ML 1ML VIAL SQ SCH ×3 (06:47→21:55)
[2016-08-16] MEDS: INSULIN SLIDING SCALE (NOVOLOG) 1 VIAL SQ SCH ×4 (06:47→21:56)
[2016-08-16] MEDS: LEVOTHYROXINE NA 150 MCG TABLET PO SCH (06:48)
[2016-08-16] MEDS ORDERED: INSULIN DETEMIR 100 UNITS/ML MDV SQ SCH (08:30)
--- NOTE | 2016-08-16 09:11 | CONSULT ---
Consult Consult Specialty:: Endocrinilogy Referred by:: Jada Wright Reason for Consultation:: HYperglycemia - History of Present Illness Chief Complaint: SOB History of Present Illness: This is 55 year old female with h/o of HTN, HLD, T2DM for around 3 years, Hypothyroidism, Obesity, OA who presented for SOB and chest pain. Pt also complained of pain rt foot. CTA chest was negative for embolism. Troponin was also negative. HB1c was 11.3 and blood sugar fluctuated from 200 to 500 during the hopitalization. Pt referred for management of uncontrolled blood sugar. Pt doesn't do BGM at home. Has polyuria, polydipsia. Has occasional paresthesia of feet. Has appointment to see ophthalmology in November. During last Oph exam was told she has possible effect in the eye from the diabetes. - History Source History Provided By: Patient, Medical Record - Past Medical History Endocrine: Yes: Diabetes Mellitus, Hypothyroidism - Alcohol/Substance Use Hx Alcohol Use: No - Smoking History Smoking history: Former smoker Have you smoked in the past 12 months: No Home Medications - Allergies Allergies/Adverse Reactions: Allergies Allergy/AdvReac Type Severity Reaction Status Date / Time Penicillins Allergy Verified 08/13/16 18:36 - Home Medications Home Medications: Ambulatory Orders Gabapentin 300 mg PO DAILY 08/13/16 Levothyroxine [Synthroid -] 300 mcg PO DAILY 08/13/16 Alcohol Antiseptic Pads [Easy Touch Alcohol Prep Pads] 1 each TP ACHS #1 med..pad 08/15/16 Aspirin Coated [Ecotrin -] 81 mg PO DAILY #30 tab 08/15/16 Blood-Glucose Meter, Drum-Type [Accu-Chek] 1 each ACHS #1 kit 08/15/16 Insulin (Levemir) [Levemir Vial] 8 units SQ HS #1 ml 08/15/16 Insulin Aspart [Novolog Flexpen] See Protocol SQ ACHS #1 insuln.pen 08/15/16 Lancets [Blood Lancets] 1 each MC ACHS #120 each 08/15/16 Losartan Potassium [Cozaar -] 25 mg PO DAILY #30 tablet 08/15/16 Miscellaneous Medical Supply [Glucometer Device] 1 each TD ASDIR #1 kit Miscellaneous Medical Supply [Glucometer Test Strips #100] 1 each TD ASDIR #1 box 08/15/16 Pen Needle, Diabetic [Insulin Pen Needle] 1 each ACHS #120 dis.needle Rosuvastatin [Crestor -] 20 mg PO HS #30 tablet 08/15/16 Family Disease History - Family Disease History Family Disease History: Diabetes: Grandparent, Mother, Sister Review of Systems - Review of Systems Constitutional: reports: No Symptoms Eyes: reports: No Symptoms HENT: reports: No Symptoms Neck: reports: No Symptoms Cardiovascular: reports: No Symptoms Respiratory: reports: No Symptoms Gastrointestinal: reports: No Symptoms Genitourinary: reports: Other (Polyruia, Nocturia) Breasts: reports: No Symptoms Reported Musculoskeletal: reports: No Symptoms Integumentary: reports: No Symptoms Neurological: reports: No Symptoms Physical Exam Vital Signs: Vital Signs Temperature 97.8 F 08/16/16 07:01 Pulse Rate 74 08/16/16 07:01 Respiratory Rate 20 08/16/16 07:05 Blood Pressure 107/59 08/16/16 07:01 O2 Sat by Pulse Oximetry (%) 97 08/16/16 07:05 Constitutional: Yes: Well Nourished, No Distress Eyes: Yes: Conjunctiva Clear, EOM Intact HENT: Yes: Atraumatic, Normocephalic Neck: Yes: Supple, Trachea Midline Cardiovascular: Yes: Regular Rate and Rhythm Gastrointestinal: Yes: Normal Bowel Sounds Extremities: Yes: WNL Edema: No Neurological: Yes: Alert, Oriented Labs: CBC, BMP 08/15/16 05:48 Imaging - Results Cat Scan: Report Reviewed Assessment/Plan AP: DM: Diet exercise discussed Nutrition consult [facility] stat Pt refuses Insulin If Creatinine normal may restart Metformin Add Glipizide 5 mg BID premeals Hypothyroidism: TSH 4.57, Repeat TSH in 3 to 4 weeks, If still high will need to increase dose of LT4 Abnormal LFT: ? fatty liver Will need GI evaluation Chest Pain resolved Will f/u
[2016-08-16] MEDS: GABAPENTIN 300 MG CAPSULE (FP) PO SCH (09:12)
[2016-08-16] MEDS: LOSARTAN POTASSIUM 25 MG TABLET PO SCH (09:12)
[2016-08-16] MEDS: ASPIRIN COATED 81 MG TABLET.EC PO SCH (09:13)
--- NOTE | 2016-08-16 10:12 | PN ---
Progress Note, Physician History of Present Illness: Shortness of breath, cough, wheeze and inspiratory chest tightness resolved after bronchodilator therapy. - Current Medication List Current Medications: Active Medications Acetaminophen (Tylenol -) 650 mg PO Q6H PRN PRN Reason: FEVER OR PAIN Last Admin: 08/16/16 01:18 Dose: 650 mg Albuterol Sulfate (Ventolin 0.083% Nebulizer Soln -) 1 amp NEB Q6H PRN PRN Reason: SHORT OF BREATH/WHEEZING Aspirin (Ecotrin -) 81 mg PO DAILY [facility] Last Admin: 08/16/16 09:13 Dose: 81 mg Gabapentin (Neurontin -) 300 mg PO DAILY [facility] Last Admin: 08/16/16 09:12 Dose: 300 mg Glipizide (Glucotrol -) 2.5 mg PO BID@0700,1630 [facility] Heparin Sodium (Porcine) (Heparin -) 5,000 unit SQ TID [facility] Last Admin: 08/16/16 06:47 Dose: 5,000 unit Insulin Aspart (Novolog Vial Sliding Scale -) 1 vial SQ ACHS [facility] PRN Reason: Protocol Last Admin: 08/16/16 06:47 Dose: 4 units Insulin Detemir (Levemir Vial) 9 units SQ [facility] Levothyroxine Sodium (Synthroid -) 300 mcg PO DAILY@0700 [facility] Last Admin: 08/16/16 06:48 Dose: 300 mcg Losartan Potassium (Cozaar -) 25 mg PO DAILY [facility] Last Admin: 08/16/16 09:12 Dose: 25 mg Rosuvastatin Calcium (Crestor -) 20 mg PO [facility] Last Admin: 08/15/16 21:54 Dose: 20 mg - Objective Vital Signs: Vital Signs Temperature 97.8 F 08/16/16 07:01 Pulse Rate 74 08/16/16 07:01 Respiratory Rate 20 08/16/16 07:05 Blood Pressure 107/59 08/16/16 07:01 O2 Sat by Pulse Oximetry (%) 97 08/16/16 07:05 Constitutional: Yes: No Distress, Calm Neck: Yes: Supple Cardiovascular: Yes: Regular Rate and Rhythm Respiratory: Yes: Regular, Diminished Gastrointestinal: Yes: Normal Bowel Sounds, Soft, Abdomen, Obese Edema: No Labs: INR, PTT INR 1.03 (0.82-1.09) 08/14/16 06:16 Problem List - Problems (1) Chest pain Code(s): R07.9 - CHEST PAIN, UNSPECIFIED Qualifiers: Chest pain type: chest pain on breathing Qualified Code(s): R07.1 - Chest pain on breathing (2) Dyspnea Code(s): R06.00 - DYSPNEA, UNSPECIFIED Qualifiers: Dyspnea type: dyspnea on exertion Qualified Code(s): R06.09 - Other forms of dyspnea (3) Hyperlipidemia due to type 2 diabetes mellitus Code(s): E11.69 - TYPE 2 DIABETES MELLITUS WITH OTHER SPECIFIED COMPLICATION E78.5 - HYPERLIPIDEMIA, UNSPECIFIED (4) Diabetes mellitus Code(s): E11.9 - TYPE 2 DIABETES MELLITUS WITHOUT COMPLICATIONS Qualifiers: Diabetes mellitus type: type 2 Diabetes mellitus predatory animal exterminator insulin use : without predatory animal exterminator use (5) Hypothyroidism Code(s): E03.9 - HYPOTHYROIDISM, UNSPECIFIED Qualifiers: Hypothyroidism type: unspecified Qualified Code(s): E03.9 - Hypothyroidism, unspecified (6) Acute bronchitis Code(s): J20.9 - ACUTE BRONCHITIS, UNSPECIFIED (7) Morbid obesity Code(s): E66.01 - MORBID (SEVERE) OBESITY DUE TO EXCESS CALORIES Qualifiers: Obesity type: unspecified obesity type Qualified Code(s): E66.01 - Morbid (severe) obesity due to excess calories Assessment/Plan 08/14/2016 Echo: Normal biventricular size and fxn, tr MR, TR 1. Dyspnea and chest tightness post environmental exposure c/w acute bronchitis resolving 2. Chronic dyspnea on exertion, exercise intolerance suspect diabetic cardiomyopathy 3. Hypothyroidism 4. Poorly controlled Type 2 DM 5. Rule out OSAS 6. Hyperlipidema 7. Abnl LFTs suspect CONTRERAS P:1. Ruled out for [place], BD, O2 as needed, trend LFTs 2. Continue Crestor 20 qd, may eventually require addition of Zetia per LDL, continue losartan 25 qd for renovascular protection, optimize hypoglycemic regimen, consider addition of Jardiance 3. Stress testing to r/o CAD, sleep study r/o OSAS may be performed as outpatient 4. D/c planning
[2016-08-16 10:32] LABS: ALBUMIN 3.4 g/dl (3.4-5.0); ALK PHOS 60 U/L (45-117); ANION GAP 8 (8-16); BILIRUBIN,TOTAL 0.3 mg/dL (0.2-1.0); CALCIUM 8.7 mg/dL (8.5-10.1); CO2 27 mmol/L (21-32); CREATININE 0.9 mg/dL (0.55-1.02); SGOT/AST 93 U/L (15-37); SGPT/ALT 108 U/L (12-78); TOT PROT 6.6 g/dl (6.4-8.2)
[2016-08-16 10:52] LABS: GLUCOSE,RANDOM 444 mg/dL (74-106)
[2016-08-16] MEDS ORDERED: INSULIN (NOVOLOG) ASPART 100 UNITS/ML 10ML VIAL ONE ×2 (11:20→21:05)
[2016-08-16] MEDS: metFORMIN HCL 500 MG TABLET (FP) PO SCH ×2 (12:39→18:33)
--- NOTE | 2016-08-16 13:35 | PN ---
Progress Note (short form) - Note Progress Note: Subjective: The patient was seen seen and examined at the bedside, she states she would like to go home She was observed injecting her insulin today with RN at bedside Per endocrine, restart Metformin and start glipizide Current Medications Generic Name Dose Route Start Last Admin Trade Name Freq PRN Reason Stop Dose Admin Acetaminophen 650 mg 08/14/16 20:56 08/16/16 01:18 Tylenol - PO 650 mg Q6H PRN Administration FEVER OR PAIN Albuterol Sulfate 1 amp 08/14/16 00:23 Ventolin 0.083% Nebulizer Soln - NEB Q6H PRN SHORT OF BREATH/WHEEZING Aspirin 81 mg 08/14/16 10:00 08/16/16 09:13 Ecotrin - PO 81 mg DAILY GREG Administration Gabapentin 300 mg 08/14/16 10:00 08/16/16 09:12 Neurontin - PO 300 mg DAILY GREG Administration Glipizide 2.5 mg 08/16/16 16:30 Glucotrol - PO BID@0700,1630 GREG Heparin Sodium (Porcine) 5,000 unit 08/14/16 06:00 08/16/16 06:47 Heparin - SQ 5,000 unit TID GREG Administration Insulin Aspart 1 vial 08/14/16 07:00 08/16/16 11:21 Novolog Vial Sliding Scale - SQ 6 units ACHS GREG Administration Protocol Levothyroxine Sodium 300 mcg 08/14/16 07:00 08/16/16 06:48 Synthroid - PO 300 mcg DAILY@0700 GREG Administration Losartan Potassium 25 mg 08/14/16 10:45 08/16/16 09:12 Cozaar - PO 25 mg DAILY GREG Administration Metformin HCl 1,000 mg 08/16/16 10:45 08/16/16 12:39 Glucophage - PO 1,000 mg BID@0700,1630 GREG Administration Rosuvastatin Calcium 20 mg 08/14/16 22:00 08/15/16 21:54 Crestor - PO 20 mg HS GREG Administration Objective: Vital Signs Period Temp Pulse Resp BP Sys/Cooley Pulse Ox Last 24 Hr 97.6 F-98.4 F 65-82 18-20 102-110/56-72 96-97 Physical Exam: General: Morbidly obese, NAD HEENT: poor dentition Lungs: CTA bilaterally Heart: RRR, S1S2 Abd: Soft, non-tender, non-distended. Normoactive bowel sounds Ext: Warm, well-perfused. 2+ DP/PT bilaterally Neuro: CN 2-12 intact CBCD WBC 7.6 K/mm3 (4.0-10.0) 08/13/16 20:36 RBC 4.81 M/mm3 (3.60-5.2) 08/13/16 20:36 Hgb 15.0 GM/dL (10.7-15.3) 08/13/16 20:36 Hct 45.1 % (32.4-45.2) 08/13/16 20:36 MCV 93.8 fl (80-96) 08/13/16 20:36 MCHC 33.3 g/dl (32.0-36.0) 08/13/16 20:36 RDW 12.9 % (11.6-15.6) 08/13/16 20:36 Plt Count 166 K/MM3 (134-434) 08/13/16 20:36 MPV 10.4 fl (7.5-11.1) 08/13/16 20:36 CMP Sodium 138 mmol/L (136-145) 08/16/16 09:35 Potassium 3.9 mmol/L (3.5-5.1) 08/16/16 09:35 Chloride 103 mmol/L (98-107) 08/16/16 09:35 Carbon Dioxide 27 mmol/L (21-32) 08/16/16 09:35 Anion Gap 8 (8-16) 08/16/16 09:35 BUN 19 mg/dL (7-18) H 08/16/16 09:35 Creatinine 0.9 mg/dL (0.55-1.02) 08/16/16 09:35 Creat Clearance w eGFR > 60 (>60) 08/16/16 09:35 Random Glucose 444 mg/dL (74-106) H* D 08/16/16 09:35 Calcium 8.7 mg/dL (8.5-10.1) 08/16/16 09:35 Total Bilirubin 0.3 mg/dL (0.2-1.0) D 08/16/16 09:35 AST 93 U/L (15-37) H 08/16/16 09:35 ALT 108 U/L (12-78) H 08/16/16 09:35 Alkaline Phosphatase 60 U/L (45-117) 08/16/16 09:35 Total Protein 6.6 g/dl (6.4-8.2) 08/16/16 09:35 Albumin 3.4 g/dl (3.4-5.0) 08/16/16 09:35 CARDIAC ENZYMES Creatine Kinase 90 IU/L (26-192) 08/14/16 10:35 Troponin I < 0.02 ng/ml (0.00-0.05) 08/14/16 10:35 Assessment: This is a 55 year old female with a PMHx of HTN, HLD, DMII, Hypothyroidism, Obesity, OA who presented for chest pain that initially started a couple of weeks ago when sitting at home in her usual state of health. Plan: 1) Endocrine: DM - Uncontrolled diabetes - Patient demonstrated insulin injection today however she has verbalized and her son has verbalized she will not do injections at home - Will discontinue Levemir - Start Glipizide - Restart home Metformin - Monitor blood sugars overnight - If remains controlled can discharge tomorrow - Appreciate endocrine consult 2) Pulmonary: Shortness of breath - Resolved - CTA negative for PE - RLE doppler negative for DVT - Albuterol neb prn - Outpatient sleep apnea study 3) Cardiology: Chest pain - Resolved - Started on Losartan - Continue ASA - Crestor for elevated hyperlipidemia - ECHO reviewed - Outpatient stress test - Appreciate cardiology consult 4) F/E/N: - Sodium controlled, diabetic diet - Monitor electrolytes 5) Prophylaxis: - Heparin 5,000u sq tid - OOB ambulating 6) Dispo: - Once condition improves CODE STATUS: FULL CODE Visit type - Emergency Visit Emergency Visit: Yes ED Registration Date: 08/16/16 Care time: The patient presented to the Emergency Department on the above date and was hospitalized for further evaluation of their emergent condition. - New Patient This patient is new to me today: No - Critical Care Critical Care patient: No
[2016-08-16] MEDS ORDERED: glipiZIDE 5 MG TABLET (FP) PO SCH (16:30)
[2016-08-16] MEDS: glipiZIDE 5 MG TABLET (FP) PO SCH (18:33)
--- NOTE | 2016-08-16 20:15 | HOSP ---
Subjective - Review of Symptoms Events since last encounter: called to see pt for right foot swelling Subjective: Pt reports foot has been swollen since last week. She had a sono on 08/14 which was negative for DVT. Pt states painincreases with walking or dorsiflexion of toes. Physical Examination Vital Signs: Vital Signs Temperature 98.2 F 08/16/16 18:05 Pulse Rate 78 08/16/16 18:05 Respiratory Rate 20 08/16/16 18:05 Blood Pressure 137/69 08/16/16 18:05 O2 Sat by Pulse Oximetry (%) 97 08/16/16 07:05 Musculoskeletal: Yes: Other (right foot with 2+ STS, no ecchymosis, no bony tenderness, negative Bessy's sign, no swelling to ankle or lower extremity.) Hospitalist Encounter Assessment: right foot swelling - xray ordered - MELCHOR stocking - elevation.
[2016-08-16] MEDS: ROSUVASTATIN CA 20 MG TABLET (FP) PO SCH (21:55)
[2016-08-17] MEDS: INSULIN SLIDING SCALE (NOVOLOG) 1 VIAL SQ SCH ×3 (06:30→18:24)
[2016-08-17] MEDS: metFORMIN HCL 500 MG TABLET (FP) PO SCH ×2 (06:30→18:08)
[2016-08-17] MEDS: HEPARIN NA (PORCINE) 5,000 UNITS/ML 1ML VIAL SQ SCH ×2 (06:30→14:02)
[2016-08-17] MEDS: glipiZIDE 5 MG TABLET (FP) PO SCH ×2 (06:30→18:08)
[2016-08-17] MEDS: LEVOTHYROXINE NA 150 MCG TABLET PO SCH (06:31)
[2016-08-17] MEDS ORDERED: INSULIN (NOVOLOG) ASPART 100 UNITS/ML 10ML VIAL ONE (06:36)
[2016-08-17 08:25] LABS: ALBUMIN 3.5 g/dl (3.4-5.0); ALK PHOS 60 U/L (45-117); ANION GAP 11 (8-16); BILIRUBIN,TOTAL 0.4 mg/dL (0.2-1.0); CO2 27 mmol/L (21-32); CREATININE 0.7 mg/dL (0.55-1.02); GLUCOSE,RANDOM 144 mg/dL (74-106); SGOT/AST 67 U/L (15-37); SGPT/ALT 98 U/L (12-78); TOT PROT 6.7 g/dl (6.4-8.2)
--- NOTE | 2016-08-17 09:25 | PN ---
Progress Note (short form) - Note Progress Note: Blood sugar improving No Hypoglycemia Vital Signs Period Temp Pulse Resp BP Sys/Cooley Pulse Ox Last 24 Hr 97.0 F-98.8 F 69-94 18-22 112-137/64-75 PE: AOx3 Neck: Supple HEENT: Eomi Lungs: CTA CVS; S1S2 Abd: Benign EXT: Rt foot swelling Neuro: No focal deficit CMP Sodium 142 mmol/L (136-145) 08/17/16 06:10 Potassium 4.0 mmol/L (3.5-5.1) 08/17/16 06:10 Chloride 104 mmol/L (98-107) 08/17/16 06:10 Carbon Dioxide 27 mmol/L (21-32) 08/17/16 06:10 Anion Gap 11 (8-16) 08/17/16 06:10 BUN 19 mg/dL (7-18) H 08/17/16 06:10 Creatinine 0.7 mg/dL (0.55-1.02) D 08/17/16 06:10 Creat Clearance w eGFR > 60 (>60) 08/17/16 06:10 POC Glucometer 152 UNITS (()) 08/17/16 06:27 Random Glucose 144 mg/dL (74-106) H D 08/17/16 06:10 Hemoglobin A1c % 11.3 % (4.8-6.0) H 08/14/16 04:30 Calcium 9.0 mg/dL (8.5-10.1) 08/17/16 06:10 Total Bilirubin 0.4 mg/dL (0.2-1.0) D 08/17/16 06:10 AST 67 U/L (15-37) H D 08/17/16 06:10 ALT 98 U/L (12-78) H 08/17/16 06:10 Alkaline Phosphatase 60 U/L (45-117) 08/17/16 06:10 Creatine Kinase 90 IU/L (26-192) 08/14/16 10:35 Troponin I < 0.02 ng/ml (0.00-0.05) 08/14/16 10:35 B-Natriuretic Peptide Cancelled 08/14/16 06:16 Total Protein 6.7 g/dl (6.4-8.2) 08/17/16 06:10 Albumin 3.5 g/dl (3.4-5.0) 08/17/16 06:10 Triglycerides 404 mg/dL (35-160) H 08/14/16 04:30 Cholesterol 381 mg/dL (50-200) H 08/14/16 04:30 Total LDL Cholesterol 279 mg/dL (5-100) H 08/14/16 04:30 HDL Cholesterol 37 mg/dL (40-60) L 08/14/16 04:30 TSH 4.57 uIU/ml (0.358-3.74) H 08/14/16 04:30 Current Medications Generic Name Dose Route Start Last Admin Trade Name Freq PRN Reason Stop Dose Admin Acetaminophen 650 mg 08/14/16 20:56 08/16/16 01:18 Tylenol - PO 650 mg Q6H PRN Administration FEVER OR PAIN Albuterol Sulfate 1 amp 08/14/16 00:23 Ventolin 0.083% Nebulizer Soln - NEB Q6H PRN SHORT OF BREATH/WHEEZING Aspirin 81 mg 08/14/16 10:00 08/16/16 09:13 Ecotrin - PO 81 mg DAILY GREG Administration Gabapentin 300 mg 08/14/16 10:00 08/16/16 09:12 Neurontin - PO 300 mg DAILY GREG Administration Glipizide 5 mg 08/16/16 16:30 08/17/16 06:30 Glucotrol - PO 5 mg BID@0700,1630 GREG Administration Heparin Sodium (Porcine) 5,000 unit 08/14/16 06:00 08/17/16 06:30 Heparin - SQ 5,000 unit TID GREG Administration Insulin Aspart 1 vial 08/14/16 07:00 08/17/16 06:30 Novolog Vial Sliding Scale - SQ 2 units ACHS GREG Administration Protocol Levothyroxine Sodium 300 mcg 08/14/16 07:00 08/17/16 06:31 Synthroid - PO 300 mcg DAILY@0700 GREG Administration Losartan Potassium 25 mg 08/14/16 10:45 08/16/16 09:12 Cozaar - PO 25 mg DAILY GREG Administration Metformin HCl 1,000 mg 08/16/16 10:45 08/17/16 06:30 Glucophage - PO 1,000 mg BID@0700,1630 GREG Administration Rosuvastatin Calcium 20 mg 08/14/16 22:00 08/16/16 21:55 Crestor - PO 20 mg HS GREG Administration AP: DM: Diet exercise discussed again Nutrition consult Pt refuses Insulin Metformin 1gm BID started as Creatinine is normal Glipizide 5 mg BID premeals Hypothyroidism: TSH 4.57, Repeat TSH in 3 to 4 weeks, If still high will need to increase dose of LT4 Abnormal LFT: ? fatty liver Will need GI evaluation Chest Pain resolved Will f/u
[2016-08-17] MEDS: LOSARTAN POTASSIUM 25 MG TABLET PO SCH (09:33)
[2016-08-17] MEDS: ASPIRIN COATED 81 MG TABLET.EC PO SCH (09:33)
[2016-08-17] MEDS: GABAPENTIN 300 MG CAPSULE (FP) PO SCH (09:33)
--- NOTE | 2016-08-17 12:13 | PN ---
Progress Note, Physician History of Present Illness: Shortness of breath, cough, wheeze and inspiratory chest tightness resolved after bronchodilator therapy. - Current Medication List Current Medications: Active Medications Acetaminophen (Tylenol -) 650 mg PO Q6H PRN PRN Reason: FEVER OR PAIN Last Admin: 08/16/16 01:18 Dose: 650 mg Albuterol Sulfate (Ventolin 0.083% Nebulizer Soln -) 1 amp NEB Q6H PRN PRN Reason: SHORT OF BREATH/WHEEZING Aspirin (Ecotrin -) 81 mg PO DAILY [facility] Last Admin: 08/17/16 09:33 Dose: 81 mg Gabapentin (Neurontin -) 300 mg PO DAILY [facility] Last Admin: 08/17/16 09:33 Dose: 300 mg Glipizide (Glucotrol -) 5 mg PO BID@0700,1630 [facility] Last Admin: 08/17/16 06:30 Dose: 5 mg Heparin Sodium (Porcine) (Heparin -) 5,000 unit SQ TID [facility] Last Admin: 08/17/16 06:30 Dose: 5,000 unit Insulin Aspart (Novolog Vial Sliding Scale -) 1 vial SQ ACHS [facility] PRN Reason: Protocol Last Admin: 08/17/16 06:30 Dose: 2 units Levothyroxine Sodium (Synthroid -) 300 mcg PO DAILY@0700 [facility] Last Admin: 08/17/16 06:31 Dose: 300 mcg Losartan Potassium (Cozaar -) 25 mg PO DAILY [facility] Last Admin: 08/17/16 09:33 Dose: 25 mg Metformin HCl (Glucophage -) 1,000 mg PO BID@0700,1630 [facility] Last Admin: 08/17/16 06:30 Dose: 1,000 mg Rosuvastatin Calcium (Crestor -) 20 mg PO HS [facility] Last Admin: 08/16/16 21:55 Dose: 20 mg - Objective Vital Signs: Vital Signs Temperature 98.3 F 08/17/16 09:41 Pulse Rate 77 08/17/16 09:41 Respiratory Rate 20 08/17/16 09:41 Blood Pressure 142/55 08/17/16 09:41 O2 Sat by Pulse Oximetry (%) 98 08/17/16 08:00 Constitutional: Yes: No Distress, Calm Neck: Yes: Supple Cardiovascular: Yes: Regular Rate and Rhythm Respiratory: Yes: Regular, Diminished Gastrointestinal: Yes: Normal Bowel Sounds, Soft Edema: Yes Edema: RLE: Trace Labs: CBC, BMP 08/17/16 06:10 INR, PTT INR 1.03 (0.82-1.09) 08/14/16 06:16 Problem List - Problems (1) Chest pain Code(s): R07.9 - CHEST PAIN, UNSPECIFIED Qualifiers: Chest pain type: chest pain on breathing Qualified Code(s): R07.1 - Chest pain on breathing (2) Dyspnea Code(s): R06.00 - DYSPNEA, UNSPECIFIED Qualifiers: Dyspnea type: dyspnea on exertion Qualified Code(s): R06.09 - Other forms of dyspnea (3) Hyperlipidemia due to type 2 diabetes mellitus Code(s): E11.69 - TYPE 2 DIABETES MELLITUS WITH OTHER SPECIFIED COMPLICATION E78.5 - HYPERLIPIDEMIA, UNSPECIFIED (4) Diabetes mellitus Code(s): E11.9 - TYPE 2 DIABETES MELLITUS WITHOUT COMPLICATIONS Qualifiers: Diabetes mellitus type: type 2 Diabetes mellitus snf insulin use : without snf use (5) Hypothyroidism Code(s): E03.9 - HYPOTHYROIDISM, UNSPECIFIED Qualifiers: Hypothyroidism type: unspecified Qualified Code(s): E03.9 - Hypothyroidism, unspecified (6) Acute bronchitis Code(s): J20.9 - ACUTE BRONCHITIS, UNSPECIFIED (7) Morbid obesity Code(s): E66.01 - MORBID (SEVERE) OBESITY DUE TO EXCESS CALORIES Qualifiers: Obesity type: unspecified obesity type Qualified Code(s): E66.01 - Morbid (severe) obesity due to excess calories Assessment/Plan 08/14/2016 Echo: Normal biventricular size and fxn, tr MR, TR 1. Dyspnea and chest tightness post environmental exposure c/w acute bronchitis resolving 2. Chronic dyspnea on exertion, exercise intolerance suspect diabetic cardiomyopathy 3. Hypothyroidism 4. Poorly controlled Type 2 DM 5. Rule out OSAS 6. Hyperlipidema 7. Abnl LFTs suspect CONTRERAS P:1. Ruled out for NC, BD, O2 as needed, trend LFTs 2. Continue Crestor 20 qd, may eventually require addition of Zetia per LDL, continue losartan 25 qd for renovascular protection, optimize hypoglycemic regimen, consider addition of Jardiance 3. Stress testing to r/o CAD, sleep study r/o OSAS may be performed as outpatient 4. Right foot compression therapy
--- NOTE | 2016-08-17 18:45 | DS ---
Physical Exam: SUBJECTIVE: Patient seen and examined seated on edge of bed. Daughter present. Only complaint is pain to right foot. OBJECTIVE: Vital Signs Period Temp Pulse Resp BP Sys/Cooley Pulse Ox Last 24 Hr 97.0 F-98.8 F 69-94 18-22 113-142/55-75 98 PHYSICAL EXAM Physical Exam: General: Morbidly obese, NAD HEENT: poor dentition Lungs: CTA bilaterally Heart: RRR, S1S2 Abd: Soft, non-tender, non-distended. Normoactive bowel sounds Ext: Warm, well-perfused. 2+ DP/PT bilaterally Neuro: CN 2-12 intact LABS Laboratory Results - last 24 hr 08/16/16 08/17/16 08/17/16 21:51 06:10 06:27 Sodium 142 Potassium 4.0 Chloride 104 Carbon Dioxide 27 Anion Gap 11 BUN 19 H Creatinine 0.7 D Creat Clearance w eGFR > 60 POC Glucometer 191 152 Random Glucose 144 H D Calcium 9.0 Total Bilirubin 0.4 D AST 67 H D ALT 98 H Alkaline Phosphatase 60 Total Protein 6.7 Albumin 3.5 08/17/16 08/17/16 11:52 17:19 Sodium Potassium Chloride Carbon Dioxide Anion Gap BUN Creatinine Creat Clearance w eGFR POC Glucometer 182 174 Random Glucose Calcium Total Bilirubin AST ALT Alkaline Phosphatase Total Protein Albumin HOSPITAL COURSE: Date of Admission:08/16/16 Date of Discharge: 08/17/16 55 year-old female with a PMH of HTN, HLD, uncontrolled diabetes, hypothyroidism , obesity, and osteoarthritis. Placed on observation for chest pain rule/out ACS. Uncontrolled diabetes - HgbA1C 11.3 - Patient was educated on insulin injection and demonstrated ability, but adamantly refused to inject at home - seen and evaluated by endocrine, treated with glipizide and metformin Shortness of breath - Resolved - CTA negative for PE - RLE doppler negative for DVT - Albuterol neb prn - Outpatient sleep apnea study Chest pain - Resolved - Started on Losartan - Continued ASA - Crestor for elevated hyperlipidemia - 08/14 Echo: LV normal; RV normal; trace MR; trace TR - Outpatient stress test Minutes to complete discharge: 35 Discharge Summary Reason For Visit: CHEST PAIN DYSPNEA Current Active Problems Acute bronchitis (Acute) Chest pain (Acute) Diabetes mellitus (Acute) Dyspnea (Acute) Hyperlipidemia due to type 2 diabetes mellitus (Acute) Hypothyroidism (Acute) Morbid obesity (Acute) Condition: Improved - Instructions Diet, Activity, Other Instructions: Five prescriptions have been sent to your pharmacy. Take these medications as directed. Return to the emergency department for any new or worsening symptoms. Referrals: Elmer Lutz MD [Staff Physician] - (Please follow-up with your pcp within 1 week to schedule an appointment for repeat TSH (thyroid stimulating hormone) testing) Yue Castillo MD [Staff Physician] - (Please follow-up with endocrine within 1 week for further management of your diabetes and insulin) Disposition: HOME - Home Medications Comprehensive Discharge Medication List: Ambulatory Orders Gabapentin 300 mg PO DAILY 08/13/16 Levothyroxine [Synthroid -] 300 mcg PO DAILY 08/13/16 Alcohol Antiseptic Pads [Easy Touch Alcohol Prep Pads] 1 each TP ACHS #1 med..pad 08/15/16 Aspirin Coated [Ecotrin -] 81 mg PO DAILY #30 tab 08/15/16 Blood-Glucose Meter, Drum-Type [Accu-Chek] 1 each MC ACHS #1 kit 08/15/16 Insulin (Levemir) [Levemir Vial] 8 units SQ HS #1 ml 08/15/16 Insulin Aspart [Novolog Flexpen] See Protocol SQ ACHS #1 insuln.pen 08/15/16 Lancets [Blood Lancets] 1 each MC ACHS #120 each 08/15/16 Losartan Potassium [Cozaar -] 25 mg PO DAILY #30 tablet 08/15/16 Miscellaneous Medical Supply [Glucometer Device] 1 each TD ASDIR #1 kit Miscellaneous Medical Supply [Glucometer Test Strips #100] 1 each TD ASDIR #1 box 08/15/16 Pen Needle, Diabetic [Insulin Pen Needle] 1 each MC ACHS #120 dis.needle Rosuvastatin [Crestor -] 20 mg PO HS #30 tablet 08/15/16 This patient is new to me today: Yes Date on this admission: 08/18/16 Emergency Visit: Yes ED Registration Date: 08/16/16 Care time: The patient presented to the Emergency Department on the above date and was hospitalized for further evaluation of their emergent condition. Critical Care patient: No - Discharge Referral Referred to [facility] Med P.C[facility] No
[2016-08-17 19:18] VITALS: BP 141/78; PULSE 74; TEMP 97.4
== END 2016-08-17 20:16 | disposition home or self-care (01) ==
LOC: JER 18:35 → UNDOADMOB 22:28 → JERBED 22:28 → J4W 08-14 05:56 → INTOOBSV 08-16 11:46 → OBSVTOIN 08-16 11:46 → J5S 08-16 15:13 → J4W 08-16 15:13 → JERBED 08-16 16:23 → J5S 08-16 16:23 → J4W 08-16 16:23
PROVIDERS: ADMIT Internal Medicine; ATTEND Nurse Practitioner Acute Care
PROC: 3E013VG Introduction of Insulin into Subcutaneous Tissue, Percutaneous Approach (ICD-10-PCS; principal; 2016-08-16)
PROC: 3E013GC Introduction of Other Therapeutic Substance into Subcutaneous Tissue, Percutaneous Approach (ICD-10-PCS; 2016-08-16)
PROC: 3E0F7GC Introduction of Other Therapeutic Substance into Respiratory Tract, Via Natural or Artificial Opening (ICD-10-PCS; 2016-08-16)
PROC: 3E0F7GC Introduction of Other Therapeutic Substance into Respiratory Tract, Via Natural or Artificial Opening (ICD-10-PCS; 2016-08-16)
DX: J20.9 Acute bronchitis, unspecified (principal); R07.89 Other chest pain; J96.91 Respiratory failure, unspecified with hypoxia; I10 Essential (primary) hypertension; E78.5 Hyperlipidemia, unspecified; E11.9 Type 2 diabetes mellitus without complications; E03.9 Hypothyroidism, unspecified; E66.01 Morbid (severe) obesity due to excess calories; R60.0 Localized edema; R74.0 Nonspecific elevation of levels of transaminase and lactic acid dehydrogenase [LDH]; K76.0 Fatty (change of) liver, not elsewhere classified; Z68.41 Body mass index [BMI] 40.0-44.9, adult; Z87.891 Personal history of nicotine dependence; Z88.0 Allergy status to penicillin; Z79.4 Long term (current) use of insulin; Z79.84 Long term (current) use of oral hypoglycemic drugs; Z79.82 Long term (current) use of aspirin
CPT/HCPCS: 36415; 36600; 71020-TC; 71275-TC; 73630-TC-RT; 80048; 80053; 80061; 80074; 82550; 82803; 83036; 83721; 83880; 84443; 84484; 85025; 85610; 93005; 93010; 93306-TC; 93971-TC; 97116-GP; 97161-GP; 99285-25; G0378; J1644